=== PATIENT | female | born 1940 | race Caucasian/White ===

== ENCOUNTER 2016-11-12 18:52 | Emergency (ER) | payer MEDICARE, BC ==
[~2016-11-12] VITALS: Ht 165.1 cm; Wt 90.9 kg
[~2016-11-12 18:52] MED LIST: AMLO5 PO; CANA100T PO; DULO20 PO; HYDR-3533 PO; LISI40TA PO; METF-324; NOVO7030P2 SQ; OMEP40CA2 PO; SYNT137T PO
[2016-11-12 19:04] VITALS: BP 162/74; PULSE 100; RESP 16; TEMP 98.1; O2SAT 95
--- NOTE | 2016-11-12 19:06 | PD ---
HPI Chief Complaint: right ankle injury Time Seen by Provider: 19:06 Travel History International Travel<30 days: No Contact w/Intl Traveler<30days: No History of Present Illness HPI 76-year-old female with a history of hypertension, diabetes, hypothyroidism is brought to the emergency department by EMS for evaluation of right ankle injury. Patient states that she was walking her dog when a neighbor approached with another dog. States that her dog tried to run away accidentally pushing her down onto her left side. States that she scraped her left knee but denies any injury with the initial fall. States that she then stood up and lost her balance on her right ankle and fell onto her right ankle. Denies any head trauma or loss of consciousness. States that she's had pain in the right ankle and has been unable to bear weight since this occurred. Denies any numbness or tingling, weakness, nausea, vomiting, headache, dizziness. Denies any prior injury or trauma to this ankle. Denies any anticoagulation. No other complaints. States tetanus vaccination is up-to-date. PFSH Past Medical History High Cholesterol: Yes Diabetes: Yes Diminished Hearing: No Hypertension: Yes Immunizations Current: Yes Thyroid Disease: Yes Menopausal: Yes Past Surgical History Cholecystectomy: Yes Eye Surgery: Yes (CATARACTS) Other Surgery: Yes (RIGHT HIP REPLACEMENT) Social History Alcohol Use: Yes (VERY OCCASIONAL (1-2 TIMES YR)) Tobacco Use: No Substance Use: No Allergies-Medications (Allergen,Severity, Reaction): Coded Allergies: Tetracycline (Verified Allergy, Unknown, 11/12/16) yeast infection Reported Meds & Prescriptions Reported Meds & Active Scripts Active Lortab (Hydrocodone-Acetaminophen) 5-325 Mg Tab 1 Tab PO Q6H PRN Reported Atorvastatin (Atorvastatin Calcium) 40 Mg Tab 40 Mg PO HS Belviq (Lorcaserin) 10 Mg Tab 10 Mg PO BID Omeprazole 40 Mg Cap 40 Mg PO DAILY PRN Levothyroxine (Levothyroxine Sodium) 112 Mcg Tab 112 Mcg PO DAILY Lortab (Hydrocodone-Acetaminophen) 5-325 Mg Tab 1 Tab PO Q8HR PRN Duloxetine DR (Duloxetine HCl) 40 Mg Capdr 40 Mg PO DAILY Lisinopril 40 Mg Tab 40 Mg PO DAILY Caltrate 600+D (Calcium Carbonate-Cholecalciferol) 600-800 Mg-Unit Tab 1 Tab PO BID Farxiga (Dapagliflozin) 10 Mg Tab 10 Mg PO DAILY Novolog Mix 70-30 Inj (Insulin Aspart Prota 70%/Aspart 30%) 1,000 Unit/10 Ml Vial 50 Units SQ BID Review of Systems Except as stated in HPI: all other systems reviewed are Neg Physical Exam Narrative GENERAL: Well-nourished and well-developed pleasant female patient in no acute distress who is nontoxic appearing. SKIN: Warm and dry. Abrasion to anterior left knee. HEAD: Normocephalic and atraumatic. EYES: No injection, drainage, or hyphema noted. PERRLA. EOMI. ENT: No nasal drainage noted. Oropharynx is clear. NECK: Supple and the trachea is midline. CARDIOVASCULAR: Regular rate and rhythm. RESPIRATORY: Breath sounds are equal bilaterally with no accessory muscle use, wheezing, rhonchi, or crackles. GASTROINTESTINAL: Abdomen is soft, non-tender, and nondistended. MUSCULOSKELETAL: Swelling and tenderness to palpation to distal aspect of right tibia and fibula at the ankle, worse on the lateral aspect. Limited range of motion in the right ankle. No obvious deformities, cyanosis, or ecchymosis is present throughout the upper and lower extremities. Patient has full range of motion in all other extremities without any signs of neurovascular compromise. DP pulses 2+ bilaterally. NEUROLOGICAL: Awake, alert, and oriented. Normal speech and gait. Cranial nerves are grossly intact. Data Data Last Documented VS Vital Signs Date Time Temp Pulse Resp B/P Pulse Ox O2 Delivery O2 Flow Rate FiO2 11/12/16 19:04 98.1 100 16 162/74 95 Orders Complete Blood Count With Diff (11/12/16 19:05) Comprehensive Metabolic Panel (11/12/16 19:05) Prothrombin Time / Inr (Pt) (11/12/16 19:05) Act Partial Throm Time (Ptt) (11/12/16 19:05) Iv Access Insert/Monitor (11/12/16 19:05) Ecg Monitoring (11/12/16 19:05) Oximetry (11/12/16 19:05) Sodium Chloride 0.9% Flush (Ns Flush) (11/12/16 19:15) Ankle, Complete ([id number]) (11/12/16 19:05) Splint Or Brace Apply/Monitor (11/12/16 19:52) Labs Laboratory Tests Test 11/12/16 19:20 White Blood Count 10.5 TH/MM3 Red Blood Count 4.30 MIL/MM3 Hemoglobin 13.2 GM/DL Hematocrit 39.1 % Mean Corpuscular Volume 91.1 FL Mean Corpuscular Hemoglobin 30.7 PG Mean Corpuscular Hemoglobin 33.7 % Concent Red Cell Distribution Width 13.1 % Platelet Count 247 TH/MM3 Mean Platelet Volume 7.9 FL Neutrophils (%) (Auto) 72.4 % Lymphocytes (%) (Auto) 19.0 % Monocytes (%) (Auto) 6.8 % Eosinophils (%) (Auto) 1.3 % Basophils (%) (Auto) 0.5 % Neutrophils # (Auto) 7.6 TH/MM3 Lymphocytes # (Auto) 2.0 TH/MM3 Monocytes # (Auto) 0.7 TH/MM3 Eosinophils # (Auto) 0.1 TH/MM3 Basophils # (Auto) 0.0 TH/MM3 CBC Comment DIFF FINAL Differential Comment Prothrombin Time 9.8 SEC Prothromb Time International 0.9 RATIO Ratio Activated Partial 21.9 SEC Thromboplast Time Sodium Level 138 MEQ/L Potassium Level 3.7 MEQ/L Chloride Level 100 MEQ/L Carbon Dioxide Level 31.3 MEQ/L Anion Gap 7 MEQ/L Blood Urea Nitrogen 16 MG/DL Creatinine 0.87 MG/DL Estimat Glomerular Filtration 64 ML/MIN Rate Random Glucose 271 MG/DL Calcium Level 9.2 MG/DL Total Bilirubin 0.4 MG/DL Aspartate Amino Transf 18 U/L (AST/SGOT) Alanine Aminotransferase 21 U/L (ALT/SGPT) Alkaline Phosphatase 62 U/L Total Protein 7.2 GM/DL Albumin 3.1 GM/DL [facility] Medical Decision Making Medical Screen Exam Complete: Yes Emergency Medical Condition: Yes Differential Diagnosis Ankle fracture versus sprain versus contusion Narrative Course 76-year-old female is brought to the emergency department by EMS for evaluation of right ankle injury. Patient is afebrile, vital signs are stable. Right lower extremity is neurovascularly intact. There is swelling and tenderness at the ankle. X-ray imaging has been ordered and is pending. Patient was administered morphine 4 mg IV via EMS on route and reports improvement of symptoms after this medication. X-ray of the right ankle shows nondisplaced distal fibular fracture. Labs are unremarkable. Patient is placed in a splint. She has a walker at home for ambulation. Discussed nonweightbearing and supportive care. She will be discharged home to follow-up as an outpatient with ortho. Patient verbalizes understanding and agreement with treatment plan. Diagnosis Primary Impression: Closed fracture of right distal fibula Qualified Code: S82.831A - Closed fracture of distal end of right fibula, unspecified fracture morphology, initial encounter Referrals: Adonis Lira MD Orthopedist Patient Instructions: Ankle Fracture (ED), General Instructions Additional Instructions: Splint. Do not bear weight on right ankle. Elevate ankle. Apply ice for 20 minutes on, 20 minutes off. Take medication as prescribed. Do not take Lortab with alcohol or while driving. Follow-up with Dr. Lira or another orthopedist. Return to the ED for any acute worsening of symptoms. Med/Other Pt SpecificInfo: Prescription(s) given Scripts Hydrocodone-Acetaminophen (Lortab)5-325 Mg Tab1 Tab PO Q6H PRN (PAIN) #20 TAB Ref 0 Prov:Omar Moser MD 11/12/16 Disposition: 01 DISCHARGE HOME Condition: Stable Tere Black November 12, 2016 19:06
[2016-11-12] MEDS ORDERED: NOVOLOGMXP SQ (19:10)
[2016-11-12] MEDS ORDERED: SODIUM CHLORIDE 0.9% FLUSH 10 ML FLUSH IV FLUSH PRN (19:15)
[2016-11-12 19:35] LABS: AUTOMATED NEUTROPHIL # 7.6 TH/MM3 (1.8-7.7); BASOPHIL % 0.5 % (0.0-2.0); EOSINOPHIL # 0.1 TH/MM3 (0-0.4); EOSINOPHIL % 1.3 % (0.0-4.0); HEMATOCRIT 39.1 % (35.0-46.0); HEMO FLAGS DIFF FINAL; MEAN CELL VOLUME 91.1 FL (80.0-100.0); MEAN CORPUSCULAR HEMOGLOBIN 30.7 PG (27.0-34.0); MEAN CORPUSCULAR HGB CONC 33.7 % (32.0-36.0); MONO % 6.8 % (0.0-8.0); NEUT % 72.4 % (16.0-70.0); PLATELET COUNT 247 TH/MM3 (150-450); RED CELL DISTRIBUTION WIDTH 13.1 % (11.6-17.2); WHITE BLOOD COUNT 10.5 TH/MM3 (4.0-11.0)
[2016-11-12] MEDS ORDERED: LEVO112T2 PO (19:50)
[2016-11-12] MEDS ORDERED: LISI40TA PO (19:50)
[2016-11-12] MEDS ORDERED: OMEP40CA2 PO (19:50)
[2016-11-12] MEDS ORDERED: CALTTAB PO (19:50)
[2016-11-12] MEDS ORDERED: HYDR-3533 PO ×2 (19:50→20:02)
[2016-11-12] MEDS ORDERED: LORC10TA24 PO (19:50)
[2016-11-12] MEDS ORDERED: DULO-39 PO (19:50)
[2016-11-12] MEDS ORDERED: DAPA1TAB3 PO (19:50)
[2016-11-12 19:55] LABS: ANION GAP 7 MEQ/L (5-15); AST (GOT) 18 U/L (15-37); BICARBONATE 31.3 MEQ/L (21.0-32.0); BLOOD UREA NITROGEN 16 MG/DL (7-18); CHLORIDE 100 MEQ/L (98-107); GLOMERULAR FILTRATION RATE 64 ML/MIN (>89); POTASSIUM 3.7 MEQ/L (3.5-5.1); SODIUM (NA) 138 MEQ/L (136-145)
[2016-11-12] MEDS ORDERED: ATOR40TA16 PO (19:55)
--- NOTE | 2016-11-12 19:57 | RADRPT ---
EXAM DATE/TIME: 11/12/2016 19:35 [facility] COMPARISON: No previous studies available for comparison. INDICATIONS : Right ankle pain and swelling after falling tonight. MEDICAL HISTORY : None. SURGICAL HISTORY : None. ENCOUNTER: Initial ACUITY: 1 day PAIN SCORE: 7/10 LOCATION: Right lateral ankle. FINDINGS: There is an oblique mildly displaced fracture of the distal fibula with a transverse component just a dana the distal tibiofibular joint and an oblique component extending down to the fibular tip. There is a minimally displaced posterior malleolar fracture. The hindfoot is notable for pes planus and a c alcaneal fracture is not entirely excluded. A plantar heel spur is present. CONCLUSION: Bimalleolar right ankle fracture. Cannot exclude anterior calcaneal fracture. Joshua Neumann MD on November 12, 2016 at 19:53 Board Certified Radiologist. This report was verified electronically.
[2016-11-12 19:58] LABS: ALKALINE PHOSPHATASE 62 U/L (45-117); ALT (GPT) 21 U/L (10-53); TOTAL BILIRUBIN ADULT 0.4 MG/DL (0.2-1.0)
[2016-11-12 20:03] LABS: APTT (PATIENT) 21.9 SEC (24.3-30.1); INTERNATIONAL NORMALIZED RATIO 0.9 RATIO; PROTHROMBIN TIME - PATIENT 9.8 SEC (9.8-11.6)
== END 2016-11-12 21:10 | disposition home or self-care (01) ==
LOC: NEPD 18:52
DX: S82.831A Other fracture of upper and lower end of right fibula, initial encounter for closed fracture (principal); I10 Essential (primary) hypertension; E11.9 Type 2 diabetes mellitus without complications; W01.0XXA Fall on same level from slipping, tripping and stumbling without subsequent striking against object, initial encounter; Y93.K1 Activity, walking an animal; Y92.480 Sidewalk as the place of occurrence of the external cause
CPT/HCPCS: 29515; 73610; 80053; 85025; 85610; 85730

== ENCOUNTER 2017-02-25 14:16 | Emergency (ER) | payer MEDICARE, BC ==
[~2017-02-25 14:16] MED LIST changes: -AMLO5 PO; +ATOR40TA16 PO; +CALTTAB PO; -CANA100T PO; +DAPA1TAB3 PO; +DULO-39 PO; -DULO20 PO; +LEVO112T2 PO; +LORC10TA24 PO; -METF-324; -NOVO7030P2 SQ; +NOVOLOGMXP SQ; -SYNT137T PO
[2017-02-25 14:24] VITALS: BP 134/63; PULSE 82; RESP 16; TEMP 98.1; O2SAT 94
[2017-02-25] MEDS ORDERED: DAPA1TAB3 PO (14:46)
--- NOTE | 2017-02-25 14:47 | PD ---
HPI Chief Complaint: Injury Time Seen by Provider: 14:40 Travel History International Travel<30 days: No Contact w/Intl Traveler<30days: No Traveled to known affect area: No History of Present Illness HPI 76-year-old female presents to the emergency room for evaluation of right knee pain after injuring it earlier today. Patient states she misstepped at a hotel and lost her balance falling to the left. She believes she twisted her right knee upon falling. Denies hitting her head or loss of consciousness. Denies any other injuries. States she has been able to bear weight but with significant pain. Pain is localized to the lateral aspect. No radiation. Worse with range of motion. Not significantly increased with palpation. She took 800 mg ibuprofen, rested, and iced it but pain persisted so she decided to have evaluated. Patient denies paresthesias. Her orthopedic surgeon is Dr. Yeison Parson. PFSH Past Medical History High Cholesterol: Yes Diabetes: Yes Patient Takes Glucophage: Yes Diminished Hearing: No Hypertension: Yes Immunizations Current: Yes Thyroid Disease: Yes Menopausal: Yes Past Surgical History Cholecystectomy: Yes Eye Surgery: Yes (CATARACTS) Other Surgery: Yes (RIGHT HIP REPLACEMENT) Social History Alcohol Use: No Tobacco Use: No Substance Use: No Allergies-Medications (Allergen,Severity, Reaction): Coded Allergies: doxycycline (Unverified Allergy, Unknown, 02/25/17) yeast infection minocycline (Unverified Allergy, Unknown, 02/25/17) yeast infection tigecycline (Unverified Allergy, Unknown, 02/25/17) yeast infection Reported Meds & Prescriptions Reported Meds & Active Scripts Active Lortab (Hydrocodone-Acetaminophen) 5-325 Mg Tab 1 Tab PO Q6H PRN Reported Atorvastatin (Atorvastatin Calcium) 40 Mg Tab 40 Mg PO HS Belviq (Lorcaserin) 10 Mg Tab 10 Mg PO BID Omeprazole 40 Mg Cap 40 Mg PO DAILY PRN Levothyroxine (Levothyroxine Sodium) 112 Mcg Tab 112 Mcg PO DAILY Lortab (Hydrocodone-Acetaminophen) 5-325 Mg Tab 1 Tab PO Q8HR PRN Duloxetine DR (Duloxetine HCl) 40 Mg Capdr 40 Mg PO DAILY Lisinopril 40 Mg Tab 40 Mg PO DAILY Caltrate 600+D (Calcium Carbonate-Cholecalciferol) 600-800 Mg-Unit Tab 1 Tab PO BID Farxiga (Dapagliflozin) 10 Mg Tab 10 Mg PO DAILY Novolog Mix 70-30 Inj (Insulin Aspart Prota 70%/Aspart 30%) 1,000 Unit/10 Ml Vial 50 Units SQ BID Review of Systems Except as stated in HPI: all other systems reviewed are Neg Physical Exam Narrative GENERAL: Well-nourished, well-developed female in no acute distress. Afebrile. Ambulatory. SKIN: Focused skin assessment warm/dry. No erythema or ecchymosis noted. HEAD: Normocephalic. EYES: No scleral icterus. No injection or drainage. NECK: Supple, trachea midline. No JVD or lymphadenopathy. CARDIOVASCULAR: Regular rate and rhythm without murmurs, gallops, or rubs. RESPIRATORY: Breath sounds equal bilaterally. No accessory muscle use. MSK: Mild edema of the right knee. There is probable effusion especially on the left. 2+ dorsalis pedis pulse. Full range of motion of the knee. No significant bony tenderness to palpation. Knee is stable. No pain with valgus or varus stress. Negative anterior and posterior drawer tests. Data Data Last Documented VS Vital Signs Date Time Temp Pulse Resp B/P (MAP) Pulse Ox O2 Delivery O2 Flow Rate FiO2 02/25/17 14:24 98.1 82 16 134/63 (86) 94 MDM Medical Decision Making Medical Screen Exam Complete: Yes Emergency Medical Condition: Yes Medical Record Reviewed: Yes Differential Diagnosis Knee strain, fracture, contusion, internal derangement Narrative Course 76-year-old female presents to the emergency room for evaluation of right lateral knee pain after trip and fall earlier today. Patient denies any other injury. She fell to her left and twisted her right knee on the way down. Since then she has had pain with ambulation and range of motion. Physical exam is reassuring. There is no significant edema, ecchymosis, or erythema. Full range of motion. Right lower extremity is neurovascularly intact with 2+ dorsalis pedis pulse. There is no bony tenderness to palpation. Patient doesn' t believe it is broken and would like to forego x-ray at this time. History and physical exam are consistent with internal derangement. She is placed in Yifan wrap and told to follow-up with her orthopedist of symptoms persist. Told to return for worsening symptoms. She understands and agrees to plan. Diagnosis Primary Impression: Internal derangement of knee Qualified Codes: M23.91 - Unspecified internal derangement of right knee Referrals: Orthopaedic Surgeon Additional Instructions: Rest and drink plenty of fluids. Take prescribed Lortab as directed, as needed for pain. Do not drink alcohol or drive while taking this medication. Yifan wrap and walker as needed. Apply ice to the affected area for 20 minutes at a time, as needed for pain and swelling. Follow-up with a primary care physician. Return to the emergency room for worsening symptoms. Disposition: 01 DISCHARGE HOME Condition: Stable Marie Dodge Feb 25, 2017 14:47
== END 2017-02-25 15:00 | disposition home or self-care (01) ==
LOC: PHEFT 14:16
DX: M23.91 Unspecified internal derangement of right knee (principal)
CPT/HCPCS: 99283